=== PATIENT | male | born 1975 | race Caucasian/White ===

== ENCOUNTER → 2020-10-29 | Outpatient (CLI) | payer OTHER ==
[~2020-10-29] MED LIST: CYCLOBENZAPRINE10 MG PO; IBUPROFEN800 MG PO; NORCO 5-325 TA1 EACH PO
== END ==
LOC: KOH-I 08:47
DX: M25.512 Pain in left shoulder (principal)
CPT/HCPCS: 73030

== ENCOUNTER → 2021-06-01 | Outpatient (CLI) | payer OTHER | LOC: KOH-I 10:57 | DX: S76.301A Unspecified injury of muscle, fascia and tendon of the posterior muscle group at thigh level, right thigh, initial encounter (principal) | CPT/HCPCS: 73718 ==